=== PATIENT | male | born 2005 | race Hispanic/Latino ===

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

== ENCOUNTER 2025-04-07 13:31 | Emergency (ER) | payer MEDICAID, OTHER ==
[~2025-04-07] VITALS: Ht 180.3 cm; Wt 115.2 kg
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
--- NOTE | 2025-04-07 14:42 | HMCIMG ---
EXAM: CR left Hip, 3 View. CLINICAL HISTORY: [facility] [place] COMPARISON: None provided. FINDINGS: BONES: No acute fracture or aggressive appearing osseous lesion. JOINTS: No dislocation. The joint spaces are normal. SOFT TISSUES: The soft tissues are unremarkable. IMPRESSION: No acute osseous abnormality. /[place]
[2025-04-07 14:54] VITALS: BP 120/52; PULSE 75; RESP 18; TEMP 98.3; O2SAT 100
[2025-04-07] MEDS: NEOMY SULF/BACITRA/POLYMYXIN B 1 EACH PACKET TP ONE (15:24)
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
== END 2025-04-07 15:53 | disposition home or self-care (01) ==
LOC: EDH 13:31
DX: S01.01XA Laceration without foreign body of scalp, initial encounter (principal); S70.02XA Contusion of left hip, initial encounter; S80.02XA Contusion of left knee, initial encounter; V87.8XXA Person injured in other specified noncollision transport accidents involving motor vehicle (traffic), initial encounter; Y93.89 Activity, other specified; Y92.89 Other specified places as the place of occurrence of the external cause; Y99.8 Other external cause status
CPT/HCPCS: 70450; 73502; 73562; 90471; 90714; 99285